=== PATIENT | female | born 1950 | race Native Hawaiian/Other Pacific Islander ===

== ENCOUNTER 2016-10-06 10:45 | Outpatient (CLI) | payer OTHER ==
[~2016-10-06 10:45] MED LIST: ASA LOW DOSE81 MG PO; B12-ACTIVE1 MG OR; BENICAR HCT1 TA2 PO; CHONDROITIN OR; CINNAMON500 MG OR; CLOP75TA2 PO; CO Q 1010 MG OR; FISH OIL1000 M1 OR; FLUT0.05 NAS; GLUCOSAMINE1500 MG OR; LOPRESSOR100 MG PO; METF500T PO; MOME50SP; MONT10TA PO; NEURONTIN600 MG PO; NIASPAN1000 ER OR; NITR0.4S2 SL; RANI150T78 PO; ROSU10TA PO; VIT E & C PO; [UNRECOGNIZED DRUG - OTHER] OR
== END 2016-10-06 20:06 | disposition home or self-care (01) ==
LOC: MAMMO 10:45
DX: Z12.31 Encounter for screening mammogram for malignant neoplasm of breast (principal)
CPT/HCPCS: G0202-TC

== ENCOUNTER 2016-10-19 11:34 | Outpatient (CLI) | payer OTHER | END 2016-10-19 13:00 | disposition home or self-care (01) | LOC: MAMMO 11:34 | DX: R92.8 Other abnormal and inconclusive findings on diagnostic imaging of breast (principal) | CPT/HCPCS: G0206-TC ==

== ENCOUNTER 2016-11-22 11:55 | Outpatient (CLI) | payer OTHER ==
[2016-11-22 13:08] LABS: POTASSIUM 4.4 mmol/L (3.6-5.2); SODIUM 139 mmol/L (136-145)
== END 2016-11-22 19:07 | disposition home or self-care (01) ==
LOC: LABW 11:55
PROVIDERS: Internal Medicine Cardiovascular Disease
DX: I25.10 Atherosclerotic heart disease of native coronary artery without angina pectoris (principal); R06.09 Other forms of dyspnea
CPT/HCPCS: 36415; 80048

== ENCOUNTER 2018-04-09 12:19 | Outpatient (CLI) | payer OTHER ==
[2018-04-09 13:02] LABS: PLATELET COUNT 269 K/uL (152-353)
[2018-04-09 13:23] LABS: POTASSIUM 3.9 mmol/L (3.6-5.2)
== END 2018-04-09 19:19 | disposition home or self-care (01) ==
LOC: LAB 12:19
PROVIDERS: Internal Medicine
DX: Z00.00 Encounter for general adult medical examination without abnormal findings (principal); E11.9 Type 2 diabetes mellitus without complications
CPT/HCPCS: 80053; 80061; 81000; 82043; 82570; 83036; 84439; 84443; 85027

== ENCOUNTER 2018-04-23 13:28 | Outpatient (CLI) | payer OTHER | END 2018-04-23 19:30 | disposition home or self-care (01) | LOC: RAD 13:28 | DX: Z13.820 Encounter for screening for osteoporosis (principal); Z78.0 Asymptomatic menopausal state ==

== ENCOUNTER 2018-05-29 11:01 | Day surgery (SDC) | payer OTHER | END 2018-05-29 15:49 | disposition home or self-care (01) | LOC: OR 11:01 | PROC: 0DBP8ZZ Excision of Rectum, Via Natural or Artificial Opening Endoscopic (ICD-10-PCS; principal; 2018-05-29) | DX: K63.5 Polyp of colon (principal); K62.1 Rectal polyp; K57.30 Diverticulosis of large intestine without perforation or abscess without bleeding; K64.8 Other hemorrhoids; Z86.010 Personal history of colon polyps; R10.31 Right lower quadrant pain; R19.4 Change in bowel habit | CPT/HCPCS: J2001; J2250; J2405; J2704 ==

== ENCOUNTER 2018-11-04 14:00 | Outpatient (CLI) | payer OTHER | END 2018-11-04 22:41 | disposition home or self-care (01) | LOC: US 14:00 | DX: M79.89 Other specified soft tissue disorders (principal) ==

== ENCOUNTER 2019-02-12 16:01 | Outpatient (CLI) | payer OTHER | END 2019-02-12 19:38 | disposition home or self-care (01) | LOC: RAD 16:01 | DX: Z01.818 Encounter for other preprocedural examination (principal) ==

== ENCOUNTER 2019-02-13 13:33 | Outpatient (CLI) | payer OTHER ==
[2019-02-13 14:02] LABS: PLATELET COUNT 321 K/uL (152-353)
[2019-02-13 14:32] LABS: POTASSIUM 4.2 mmol/L (3.6-5.2)
== END 2019-02-13 19:32 | disposition home or self-care (01) ==
LOC: LAB 13:33
PROVIDERS: Orthopaedic Surgery
DX: T56.2X1A Toxic effect of chromium and its compounds, accidental (unintentional), initial encounter (principal); E11.9 Type 2 diabetes mellitus without complications
CPT/HCPCS: 80053; 81000; 82495; 83018; 83036; 85027

== ENCOUNTER 2019-03-06 15:43 | Inpatient (IN) | payer OTHER ==
[~2019-03-06] VITALS: Ht 154.9 cm; Wt 142.9 kg
[2019-03-06 17:08] LABS: POTASSIUM 3.5 mmol/L (3.6-5.2)
[2019-03-06 17:47] LABS: PLATELET COUNT 433 K/uL (152-353)
[2019-03-06 18:23] VITALS: BP 114/88; TEMP 98
[2019-03-06 20:03] VITALS: BP 148/63; TEMP 98.5
[2019-03-06] MEDS ORDERED: APIX1TAB PO (20:42)
[2019-03-06] MEDS ORDERED: GLIP10TA55 PO (20:49)
[2019-03-06] MEDS ORDERED: METFTAB PO (20:52)
[2019-03-06] MEDS ORDERED: PANTOPRAZOLE 40MG TA PO (20:57)
[2019-03-06] MEDS ORDERED: SIMV40TA57 (20:57)
[2019-03-07 20:00] VITALS: BP 141/67; TEMP 98.4
[2019-03-08 08:03] VITALS: BP 147/70; TEMP 97.6
[2019-03-08 20:00] VITALS: BP 119/70; TEMP 98
[2019-03-09 08:04] VITALS: BP 101/45; TEMP 98.2
[2019-03-09 20:00] VITALS: BP 119/44; TEMP 98.2
[2019-03-10 08:25] VITALS: BP 136/85; TEMP 98.4
[2019-03-10 20:00] VITALS: BP 149/80; TEMP 98.9
[2019-03-11 08:00] VITALS: BP 133/48; TEMP 98
[2019-03-11 20:09] VITALS: BP 144/66; TEMP 98.1
[2019-03-12 08:00] VITALS: BP 124/58; TEMP 97.7
[2019-03-12 20:00] VITALS: BP 145/66; TEMP 98.9
[2019-03-13 05:32] LABS: PLATELET COUNT 486 K/uL (152-353)
[2019-03-13 05:36] LABS: POTASSIUM 4.3 mmol/L (3.6-5.2)
[2019-03-13 08:00] VITALS: BP 140/53; TEMP 97.7
[2019-03-13 20:00] VITALS: BP 119/53; TEMP 98.3
[2019-03-14 08:00] VITALS: BP 116/68; TEMP 97.9
[2019-03-14 20:09] VITALS: BP 147/61; TEMP 98
[2019-03-15 08:00] VITALS: BP 156/100; TEMP 98.2
[2019-03-15 19:54] VITALS: BP 125/50; TEMP 97.8
[2019-03-16 08:00] VITALS: BP 128/66; TEMP 98.3
[2019-03-16 20:25] VITALS: BP 124/67; TEMP 98.3
[2019-03-17 08:19] VITALS: BP 146/67; TEMP 97.9
[2019-03-17 20:00] VITALS: BP 119/69; TEMP 98.3
[2019-03-18 08:00] VITALS: BP 138/45; TEMP 98.1
[2019-03-18 20:00] VITALS: BP 144/67; TEMP 98.3
[2019-03-19 08:00] VITALS: BP 136/48; TEMP 98.4
[2019-03-19 20:10] VITALS: BP 123/57; TEMP 98.3
[2019-03-20 08:00] VITALS: BP 125/52; TEMP 97.9
[2019-03-20 20:00] VITALS: BP 118/44; TEMP 98.3
[2019-03-21 08:00] VITALS: BP 154/54; TEMP 97.5
[2019-03-21 20:00] VITALS: BP 134/73; TEMP 98
[2019-03-22 08:00] VITALS: BP 154/63; TEMP 97.5
[2019-03-22 20:00] VITALS: BP 118/40; TEMP 98.1
[2019-03-23 08:25] VITALS: BP 149/65; TEMP 98.4
[2019-03-23 10:22] LABS: PLATELET COUNT 372 K/uL (152-353)
[2019-03-23 20:00] VITALS: BP 122/53; TEMP 98.6
[2019-03-24 08:07] VITALS: BP 120/62; TEMP 98.6
== END 2019-03-24 09:29 | disposition home or self-care (01) | DRG 556 ==
LOC: MED/SURG 15:43
PROVIDERS: Family Medicine; ADMIT Internal Medicine
DX: M62.81 Muscle weakness (generalized) (principal); B37.41 Candidal cystitis and urethritis; Z47.1 Aftercare following joint replacement surgery; Z96.641 Presence of right artificial hip joint; E66.01 Morbid (severe) obesity due to excess calories; E11.40 Type 2 diabetes mellitus with diabetic neuropathy, unspecified; I25.10 Atherosclerotic heart disease of native coronary artery without angina pectoris; I10 Essential (primary) hypertension; J32.8 Other chronic sinusitis; J40 Bronchitis, not specified as acute or chronic; R62.7 Adult failure to thrive; D47.3 Essential (hemorrhagic) thrombocythemia
CPT/HCPCS: 36415; 80053; 81000; 83735; 85027; 87070; 87077; 87186; 87205

== ENCOUNTER 2019-04-16 16:21 | Outpatient (CLI) | payer OTHER ==
[~2019-04-16 16:21] MED LIST changes: +APIX1TAB PO; +GLIP10TA55 PO; +METFTAB PO; +PANTOPRAZOLE 40MG TA PO; +SIMV40TA57
[2019-04-16 16:50] LABS: POTASSIUM 3.8 mmol/L (3.6-5.2)
[2019-04-16 17:26] LABS: PARTIAL THROMBOPLASTIN TIME 24.2 SECONDS (24.5-33.6)
[2019-04-16 17:43] LABS: PLATELET COUNT 386 K/uL (152-353)
== END 2019-04-16 21:19 | disposition home or self-care (01) ==
LOC: LABW 16:21
PROVIDERS: Internal Medicine
DX: R23.3 Spontaneous ecchymoses (principal)
CPT/HCPCS: 36415; 80053; 85027; 85379; 85610; 85730

== ENCOUNTER 2019-04-17 11:58 | Outpatient (CLI) | payer OTHER | END 2019-04-17 19:12 | disposition home or self-care (01) | LOC: US 11:58 | DX: R79.89 Other specified abnormal findings of blood chemistry (principal) ==

== ENCOUNTER 2020-05-24 14:25 | Outpatient (CLI) | payer OTHER ==
[2020-05-24 15:27] LABS: PLATELET COUNT 314 K/uL (152-353)
[2020-05-24 15:47] LABS: POTASSIUM 4.6 mmol/L (3.6-5.2)
== END 2020-05-24 21:40 | disposition home or self-care (01) ==
LOC: LAB 14:25
PROVIDERS: ATTEND Internal Medicine
DX: Z00.00 Encounter for general adult medical examination without abnormal findings (principal); E11.9 Type 2 diabetes mellitus without complications; I25.10 Atherosclerotic heart disease of native coronary artery without angina pectoris; Z13.820 Encounter for screening for osteoporosis; E55.9 Vitamin D deficiency, unspecified
CPT/HCPCS: 80053; 80061; 81000; 82306; 83036; 84439; 84443; 85027

== ENCOUNTER 2020-06-04 11:08 | Outpatient (CLI) | payer OTHER | END 2020-06-04 19:52 | disposition home or self-care (01) | LOC: MAMMO 11:08 | PROVIDERS: ATTEND Internal Medicine | DX: Z12.31 Encounter for screening mammogram for malignant neoplasm of breast (principal); Z13.820 Encounter for screening for osteoporosis; N95.8 Other specified menopausal and perimenopausal disorders ==

== ENCOUNTER 2020-07-15 13:56 | Observation (INO) | payer OTHER ==
[2020-07-15] VITALS (7 sets, daily range): BP systolic 114–170; BP diastolic 62–88; TEMP 98.4–99.5; Ht 154.9 cm; Wt 147.0 kg
[~2020-07-15] VITALS: Ht 154.9 cm; Wt 147.0 kg
[2020-07-15 14:26] LABS: PLATELET COUNT 288 K/uL (152-353)
[2020-07-15 14:50] LABS: PARTIAL THROMBOPLASTIN TIME 24.3 SECONDS (24.5-33.6); POTASSIUM 3.9 mmol/L (3.6-5.2); SODIUM 134 mmol/L (136-145)
[2020-07-15] MEDS ORDERED: METO100T37 PO (17:06)
[2020-07-15] MEDS ORDERED: SIMV20TA2 PO (17:07)
[2020-07-15] MEDS ORDERED: GABA300C2 PO (17:07)
[2020-07-15] MEDS ORDERED: AMLODIPINE BESYLATE PO (17:08)
[2020-07-15] MEDS ORDERED: METFORMIN ER1000 MG PO (17:10)
--- NOTE | 2020-07-15 19:30 | NUR ---
ENTERED PATIENT'S ROOM AT THIS TIME. PATIENT SITTING UP IN BED WATCHING TV. NS INFUSING @ 100ML/HR. 20G TO RIGHT AC PATENT AND INTACT. NO SWELLING OR ERYTHEMA NOTED. SHE DENIES ANY PAIN OR CHEST TIGHTNESS. STATES SHE FEELS MUCH BETTER AT THIS TIME. BED LOCKED AND IN LOWEST POSITION. CALL LIGHT WITHIN REACH.
[2020-07-16 00:09] VITALS: BP 146/69; TEMP 98.4
--- NOTE | 2020-07-16 01:30 | NUR ---
ONE LITER OF NS FINISHED INFUSING AT THIS TIME. 20G TO RIGHT AC SALINE LOCKED. PATIENT DID AMBULATE TO THE BATHROOM AND DID BECOME SLIGHTLY SOB ON EXERTION. NO CONCERNS OR COMPLAINTS VOICED AT THIS TIME. BANDAGE TO RIGHT LUTHERAN INTACT FROM PREVIOUS BIOPSY. BED LOCKED AND IN LOWEST POSITION. CALL LIGHT WITHIN REACH.
[2020-07-16 04:00] VITALS: BP 152/68; TEMP 98.7
[2020-07-16 05:34] LABS: PLATELET COUNT 231 K/uL (152-353)
[2020-07-16 05:42] LABS: POTASSIUM 3.4 mmol/L (3.6-5.2)
--- NOTE | 2020-07-16 05:45 | NUR ---
PATIENT SITTING UP IN BED WATCHING TV. NAD NOTED. RESPIRATIONS EVEN AND UNLABORED. LOVENOX ADMINISTERED AT THIS TIME. PATIENT TOLERATED WELL. CALL LIGHT WITHIN REACH.
--- NOTE | 2020-07-16 06:11 | NUR ---
PATIENT TAKEN TO X-RAY VIA W/C AT THIS TIME.
--- NOTE | 2020-07-16 06:30 | NUR ---
PATIENT TRANSFERRED BACK TO ROOM VIA W/C.
[2020-07-16 08:16] VITALS: BP 150/72; TEMP 97.9
--- NOTE | 2020-07-16 08:30 | NUR ---
PATIENT SITTING UP IN BED EATING BREAKFAST. PATIENT DENIES CHEST PAIN AND DIARRHEA AT THIS TIME. ORDER FOR DISCHARGE RECEIVED. 20G PERIPHERAL IV TO RIGHT AC D/C WITH TIP INTACT. TELEMETRY D/C.
--- NOTE | 2020-07-16 09:15 | NUR ---
PATIENT GIVEN DISCHARGE INSTRUCTIONS AND FOLLOW UP APPOINTMENT CARD. SHIREEN VERBALIZED UNDERSTANDING OF INSTRUCTIONS. PATIENT SURVEY UNAVALIABLE AT THIS TIME. PATIENT WHEELED TO PERSONAL VEHICLE.
== END 2020-07-16 09:31 | disposition home or self-care (01) ==
LOC: ED 13:56 → MED/SURG 15:39
PROVIDERS: Hospitalist; ADMIT Internal Medicine Endocrinology, Diabetes & Metabolism; ATTEND Internal Medicine Endocrinology, Diabetes & Metabolism
DX: R07.89 Other chest pain (principal); E11.42 Type 2 diabetes mellitus with diabetic polyneuropathy; K21.9 Gastro-esophageal reflux disease without esophagitis; I25.10 Atherosclerotic heart disease of native coronary artery without angina pectoris; E78.49 Other hyperlipidemia; M15.8 Other polyosteoarthritis; I10 Essential (primary) hypertension; K52.89 Other specified noninfective gastroenteritis and colitis
CPT/HCPCS: 36415; 80048; 80053; 81000; 82550; 83880; 84484; 85027; 85610; 85730; 87635; 93005; 96374; 99220; 99284; G0378; J1650; U0003

== ENCOUNTER 2021-01-25 13:03 | Outpatient (CLI) | payer OTHER ==
[~2021-01-25 13:03] MED LIST changes: +AMLODIPINE BESYLATE PO; +GABA300C2 PO; +METFORMIN ER1000 MG PO; +METO100T37 PO; +SIMV20TA2 PO
[2021-01-25 13:29] LABS: PLATELET COUNT 290 K/uL (152-353)
== END 2021-01-25 19:06 | disposition home or self-care (01) ==
LOC: LAB 13:03
PROVIDERS: ATTEND Internal Medicine
DX: E11.9 Type 2 diabetes mellitus without complications (principal)
CPT/HCPCS: 80053; 80061; 81000; 82043; 83036; 84439; 84443; 85027

== ENCOUNTER 2021-07-07 11:34 | Outpatient (CLI) | payer OTHER | END 2021-07-07 19:03 | disposition home or self-care (01) | LOC: RAD 11:34 | PROVIDERS: ATTEND Internal Medicine | DX: M54.2 Cervicalgia (principal); M79.602 Pain in left arm ==

== ENCOUNTER 2021-07-27 09:52 | Outpatient (CLI) | payer OTHER | END 2021-07-27 19:11 | disposition home or self-care (01) | LOC: MRI 09:52 | PROVIDERS: ATTEND Internal Medicine | DX: M47.12 Other spondylosis with myelopathy, cervical region (principal) | CPT/HCPCS: 36415; 82565; 84520 ==

== ENCOUNTER 2021-09-06 12:15 | Outpatient (CLI) | payer OTHER ==
[2021-09-06 12:43] LABS: PLATELET COUNT 305 K/uL (152-353)
[2021-09-06 13:00] LABS: POTASSIUM 4.8 mmol/L (3.6-5.2)
== END 2021-09-06 18:52 | disposition home or self-care (01) ==
LOC: LAB 12:15
PROVIDERS: ATTEND Internal Medicine
DX: E11.9 Type 2 diabetes mellitus without complications (principal)
CPT/HCPCS: 80053; 80061; 83036; 84439; 84443; 84550; 85027

== ENCOUNTER 2022-05-02 09:58 | Outpatient (CLI) | payer OTHER | END 2022-05-02 20:29 | disposition home or self-care (01) | LOC: CT 09:58 | PROVIDERS: ATTEND Internal Medicine | DX: J32.0 Chronic maxillary sinusitis (principal) ==